=== PATIENT | female | born 1940 | race Caucasian/White ===

== ENCOUNTER 2025-02-24 19:45 | Emergency (ER) | payer OTHER ==
[2025-02-24] MEDS ORDERED: ONDANSETRON 4 MG/2 ML VIAL ONE (20:28)
[2025-02-24] MEDS ORDERED: HYDROMORPHONE HCL 0.5 MG/0.5 ML INJ ONE (20:28)
[2025-02-24 20:34] LABS: Absolute Lymphocytes (CBC) 0.3 K/uL (0.7-4.9); Hematocrit 32.8 % (36.0-45.0); Hemoglobin 10.6 g/dL (12.0-15.0); MCH 29.6 pg (27.0-35.0); MCHC 32.3 g/dL (32.0-36.0); MCV 91.9 fL (80-100); MPV 7.8 fL (7.6-11.3); Nucleated RBC Absolute Count 0.0 (0-0); Nucleated Red Blood Cells % 0.0 % (0-0); RBC Red Blood Cell Count 3.57 M/uL (3.86-4.86); White Blood Count 12.20 thou/uL (4.3-10.9)
[2025-02-24 21:09] LABS: ALT/SGPT 49.0 U/L (13-56); AST/SGOT 67.0 U/L (15-37); Albumin 3.0 g/dL (3.4-5.0); Albumin/Globulin Ratio 0.8 (1.1-1.8); Alkaline Phosphatase 78.0 U/L (45-117); Anion Gap 10.7 mEq/L (5.0-15.0); BUN Blood Urea Nitrogen 21.0 mg/dL (7-18); Globulin 4.0 g/dL (2.3-3.5); Glucose Level 146.0 mg/dL (74-106); Lipase 20.0 U/L (13-75); Potassium 4.7 mEq/L (3.5-5.1)
[2025-02-24 21:20] LABS: Sqamous Epithelial <5 /HPF (None Seen); Urine Culture Reflex Order REFLEXED; Urine Microscopic Reflex YN ORDER UMIC; Urine WBC Clump Rare /HPF (None Seen)
[2025-02-24 22:32] LABS: Differential Total Cells Count 100; Segmented Neutrophils 81 % (40-80)
[2025-02-24 22:33] LABS: Blood Morphology Comment NOT SEEN (NOT SEEN)
--- NOTE | 2025-02-24 22:35 | RAD REPORT ---
EXAMINATION: CT ABDOMEN AND PELVIS WITH CONTRAST CLINICAL INDICATION: ABD PAIN TECHNIQUE: CT abdomen and pelvis was performed, after the administration of IV contrast, as per [facility] protocol. Axial, sagittal and coronal reconstructions were obtained. One or more of the following dose reduction techniques were used: Automated exposure control, adjustment of the mA and k V according to patient size, and iterative reconstruction. Unless otherwise specified, incidental findings do not require dedicated imaging follow-up. COMPARISON: No prior exam. FINDINGS: LOWER CHEST: Mild/moderate linear atelectasis in both posterior lung bases. LIVER: Mild diffuse fatty liver. Several small low-density hepatic lesions are present. Grossly unrem arkable gallbladder. SPLEEN: Normal size. No focal lesion. PANCREAS: There is mild pancreatic ductal dilatation seen. ADRENALS: Normal; no mass. KIDNEYS: 3.4 cm rounded lesion is seen superior cortex right kidney laterally with indistinct borders and intermediate density. There are several right renal calyceal stones. Benign cyst is also present inferior right kidney. Severe left hydronephrosis and hydroureter is present with significant cortical thinning. Punctate calyceal stone is also present. Distal ureter not well visualized due to artifact from right hip hardware. GASTROINTESTINAL TRACT: No evidence of free air, significant intra-abdominal free fluid, bowel obstru ction or abscess. Moderate stool is present throughout the colon. Mild sigmoid diverticulosis coli. APPENDIX: Normal appendix. LYMPH NODES: No lymphadenopathy. MUSCULOSKELETAL: Severe dextroscoliosis of the lumbar spine. ADDITIONAL FINDINGS: Significant streak artifact from right hip hardware obscures pelvic anatomy. IMPRESSION: 3.4 cm rounded intermediate density somewhat ill-defined lesion right renal cortex superiorly. This c ould represent focal pyelonephritis such as lobar nephronia or a mass. Follow-up nonemergent MRI abdomen with contrast would be useful for further characterization. Right nephrolithiasis is present. No significant right-sided hydronephrosis. Severe left-sided hydronephrosis and hydroureter is present with cortical thinning suggesting that th is is a chronic finding. Distal ureter is not well visualized nor is the left UVJ due to streak artifact. Mild pancreatic ductal dilatation is seen. There is no definitive etiology on this study, follow-up n onemergent MRCP may be of value.
--- NOTE | 2025-02-24 23:33 | EDPHYS ---
Physician Documentation [facility] Name: Marion Nelson Age: 84 yrs Sex: Female : 1940 Arrival Date: 02/24/2025 Time: 19:45 Bed 20 Private MD: ED Physician Mikel De Paz HPI: 02/25 01:02 This 84 yrs old Female presents to ER via EMS with complaints of flank pain. tt7 01:02 Patient reports she has been having dysuria for 2 days, was seen by her physician and tt7 started on course of Bactrim for cystitis, she has taken 2 doses of Bactrim, today she started to have moderate sharp/stabbing left flank pain with associated chills and nausea. No exacerbating or alleviating factors. Historical: - Allergies: 02/24 19:51 codeine sulfate; br2 19:51 ROCEPHIN; br2 19:51 Ibuprofen; br2 - PMHx: 02/25 01:52 Hypertensive disorder; Hypercholesterolemia; br2 - Immunization history:: Adult Immunizations not up to date. - Infectious Disease History:: Denies. - Social history:: Smoking status: Patient/guardian denies using tobacco, but has a distant history of tobacco abuse, Patient uses alcohol, occasionally. Patient/guardian denies using street drugs. ROS: 01:04 Constitutional: negative for fever. Cardiovascular: negative for chest pain. tt7 Respiratory: negative for shortness of breath. Abdomen/GI: positive for flank pain, negative for abdominal pain, vomiting, diarrhea. MS/Extremity: negative for injury and deformity. Skin: negative for rash. Neuro: negative for focal weakness. Exam: 01:05 Constitutional: vital signs reviewed, uncomfortable appearing. Head/Face: tt7 normocephalic, atraumatic. Eyes: no conjunctival injection, anicteric sclerae. ENT: mucus membranes moist. Neck: trachea midline, no JVD, no meningismus. Cardiovascular: regular rate and rhythm, no murmurs, no rubs, no lower extremity edema. Respiratory: normal respiratory effort, no accessory muscle use, lungs CTAB. Abdomen/GI: soft, nondistended, nontender, no guarding or rebound, negative Treadwell's sign, no McBurney point tenderness, bilateral CVA tenderness. Skin: warm, dry, intact, normal turgor, normal color, no rash. MS/ Extremity: normal ROM of extremities, no gross deformities. Neuro: alert and oriented with appropriate mental status, normal speech, follows commands, no focal neurologic deficits. Psych: anxious Vital Signs: 02/24 19:49 BP 130 / 93; Pulse 87; Resp 18 S; Temp 97.4(TE); Pulse Ox 100% on R/A; Weight 53.52 kg; br2 Height 5 ft. 2 in. ; Pain 03/04; 21:53 BP 139 / 62; Pulse 94; Resp 18; Pulse Ox 95% on R/A; br2 23:03 Pulse 102; Resp 18; Pulse Ox 97% on R/A; br2 02/25 01:00 BP 147 / 67; Pulse 91; Resp 18 S; Pulse Ox 100% on R/A; br2 02:00 BP 146 / 69; Pulse 87; Resp 16; Temp 99.5; Pulse Ox 94% on R/A; br2 02/24 19:49 Body Mass Index 21.58 (53.52 kg, 157.48 cm) br2 02/24 19:49 Pain Scale: Adult br2 MDM: 02/24 19:47 Medical Screening Exam initiated tt7 02/25 01:06 Differential Diagnosis Pyelonephritis, perinephric abscess, renal abscess, tt7 ureterolithiasis, ureteral obstruction, acute cystitis, sepsis. Data reviewed: vital signs, nurses notes, lab test result(s), radiologic studies. Counseling: I had a detailed discussion with the patient and/or guardian regarding the historical points, exam findings, and any diagnostic results supporting the discharge/admit diagnosis, lab results, radiology results, the need to transfer to another facility. ED course: 84-year-old female with flank pain and urinary symptoms, vital signs are stable, physical exam is positive for CVA tenderness, laboratory studies, urinalysis, and CT imaging of the abdomen/pelvis have been ordered, patient given antiemetic and parenteral opioid, laboratory studies demonstrated that patient has a leukocytosis of 12,000 with 14% bands, this finding as well as her elevated pulse of 102 meet SIRS criteria for sepsis, lactate and blood cultures ordered, patient administered empiric Zosyn. CT imaging demonstrates findings concerning for focal area of infection in the superior aspect of the right kidney which likely represents focal pyelonephritis versus organizing abscess, patient on appropriate antibiotic coverage, given the focal appearance of this and potential for it to be a mass as well will initiate transfer to a facility that has urology services as patient could require urologic intervention. I discussed the case with on-call urologist at [facility] who agrees to consult on the case. I discussed the patient presentation, vitals, laboratory studies, and CT imaging findings with hospitalist Dr. Coleman who accepts patient for transfer. 02/24 19:49 Order name: CBC with Diff; Complete Time: 22:37 tt7 02/24 19:49 Order name: CMP; Complete Time: 21:36 tt7 02/24 19:49 Order name: Lipase; Complete Time: 21:36 tt7 02/24 19:49 Order name: UA Rfx Basilio Cult if indicated; Complete Time: 21:36 tt7 02/24 21:31 Order name: Urine Culture EDMS 02/24 22:01 Order name: Manual Differential; Complete Time: 22:37 EDMS 02/24 23:15 Order name: Blood Culture Adult (2) tt7 02/24 23:15 Order name: Lactate w/ 2H reflex if indic.; Complete Time: 01:10 tt7 02/24 19:49 Order name: CT Abd/Pelvis - IV Contrast Only; Complete Time: 22:37 tt7 02/24 19:49 Order name: IV Saline Lock; Complete Time: 20:36 tt7 02/24 19:49 Order name: Labs collected and sent; Complete Time: 20:36 tt7 02/24 23:15 Order name: Cardiac monitoring; Complete Time: 23:18 tt7 02/24 23:15 Order name: IV Saline Lock - Large Bore; Complete Time: 23:18 tt7 02/24 23:15 Order name: O2 Per Protocol; Complete Time: 23:18 tt7 02/24 23:15 Order name: O2 Sat Monitoring; Complete Time: 23:18 tt7 02/24 23:15 Order name: Vital Signs; Complete Time: 23:18 tt7 Administered Medications: 02/24 21:15 Drug: HYDROmorphone IVP 0.5 mg IVP once Route: IVP; Site: right antecubital; br2 21:15 Drug: Ondansetron IVP 4 mg IVP once; over 2 minutes Route: IVP; Site: right antecubital;br2 02/25 00:28 Drug: Piperacillin-Tazobactam IVPB 4.5 grams IVPB once over 60 mins; (mix in 100 mL NS) br2 Route: IVPB; Infused Over: 60 mins; Site: right antecubital; 02:41 Follow up: Response: No adverse reaction; IV Intake: 100ml br2 01:46 Drug: NS 0.9% IV 1000 ml IV at 1000 ml once; to be given as a bolus over 60 minutes br2 Route: IV; Rate: 1000 ml; Site: right antecubital; 02:41 Follow up: IV Status: Completed infusion; IV Intake: 1000ml br2 02:13 Drug: Acetaminophen PO 1000 mg PO once Route: PO; br2 02:42 Follow up: Response: Pain is decreased br2 03:00 Drug: HYDROmorphone IVP 0.5 mg IVP once Route: IVP; Site: right antecubital; br2 03:01 Follow up: Response: Medication Administered at Departure br2 Disposition: 01:22 Co-signature as Attending Physician, Mikel De Paz DO. tt7 Disposition Summary: 02/24/25 23:32 Transfer Ordered Notes: Transfer Location: [facility] tt7 Reason: Higher level of care tt7 Condition: Fair tt7 Problem: new tt7 Symptoms: are unchanged tt7 Accepting Physician: Dr. Coleman(02/25/25 03:04) br2 Diagnosis - Pyelonephritis acute tt7 - Sepsis, unspecified organism tt7 Forms: - Medication Reconciliation Form tt7 - SBAR form tt7 Signatures: Dispatcher [employer] Georgia Dee RN RN br2 Mikel De Paz DO DO tt7 Corrections: (The following items were deleted from the chart) 02/24 23:15 23:15 BLOOD CULTURE*+BA.LAB.BRZ ordered. [facility] 23:15 23:15 LACTATE+C.LAB.BRZ ordered. [facility] 02/25 01:16 01:06 ED course: 84-year-old female with flank pain and urinary symptoms, vital signs tt7 are stable, physical exam is positive for CVA tenderness, laboratory studies, urinalysis, and CT imaging of the abdomen/pelvis have been ordered, patient given antiemetic and parenteral opioid, laboratory studies demonstrated that patient has.. omar 01:20 02/24 23:32 Dr. nelson tt7 02/25 01:22 01:06 ED course: 84-year-old female with flank pain and urinary symptoms, vital signs tt7 are stable, physical exam is positive for CVA tenderness, laboratory studies, urinalysis, and CT imaging of the abdomen/pelvis have been ordered, patient given antiemetic and parenteral opioid, laboratory studies demonstrated that patient has a leukocytosis of 12,000 with 14% bands, this finding as well as her elevated pulse of 102 meet SIRS criteria for sepsis, lactate and blood cultures ordered, patient administered empiric Zosyn.. tt7 03:04 01:20 Dr. Virginia nelson br2
--- NOTE | 2025-02-24 23:33 | ER ---
Nurse's Notes [facility] Name: Marion Nelson Age: 84 yrs Sex: Female : 1940 Arrival Date: 02/24/2025 Time: 19:45 Bed 20 Private MD: Diagnosis: Pyelonephritis acute;Sepsis, unspecified organism Presentation: 02/24 19:49 Chief complaint: Patient states: PT C/O LEFT FLANK PAIN THAT BEGAN AFTER DINNER TODAY. br2 PT STARTED TX FOR UTI AND HAS HAD 2 DOSES OF BACTRIM. PT C/O BURNING AFTER URINATION. Coronavirus screen: Client denies travel out of the [place] in the last 14 days. Ebola Screen: Patient denies exposure to infectious person. Initial Sepsis Screen: Does the patient meet any 2 criteria? No. Patient's initial sepsis screen is negative. Does the patient have a suspected source of infection? No. Patient's initial sepsis screen is negative. Risk Assessment: Do you want to hurt yourself or someone else? Patient reports no desire to harm self or others. Onset of symptoms was February 24, 2025 at 17:00. 19:49 Method Of Arrival: EMS: [facility] br2 19:49 Acuity: ARPAN 3 br2 Triage Assessment: 19:51 General: Appears uncomfortable, Behavior is cooperative, anxious. Pain: Complains of br2 pain in left lower back Pain currently is 10 out of 10 on a pain scale. 19:51 EENT: No signs and/or symptoms were reported regarding the EENT system. Neuro: Maxwell br2 Agitation-Sedation Scale (RASS): +1 Restless Level of Consciousness is awake, alert, Oriented to person, place, time, situation. Cardiovascular: Denies chest pain. Respiratory: Airway is patent Respiratory effort is even, unlabored, Respiratory pattern is regular, symmetrical. GI: No signs and/or symptoms were reported involving the gastrointestinal system. : Reports burning with urination, LEFT FLANK PAIN. Derm: No signs and/or symptoms reported regarding the dermatologic system. Musculoskeletal: No signs and/or symptoms reported regarding the musculoskeletal system. Historical: - Allergies: 19:51 codeine sulfate; br2 19:51 ROCEPHIN; br2 19:51 Ibuprofen; br2 - PMHx: 10/03 01:52 Hypertensive disorder; Hypercholesterolemia; br2 - Immunization history:: Adult Immunizations not up to date. - Infectious Disease History:: Denies. - Social history:: Smoking status: Patient/guardian denies using tobacco, but has a distant history of tobacco abuse, Patient uses alcohol, occasionally. Patient/guardian denies using street drugs. Screenin/02 19:49 [facility] ED Fall Risk Assessment (Adult) History of falling in the last 3 months, br2 including since admission No falls in past 3 months (0 pts) Confusion or Disorientation No (0 pts) Intoxicated or Sedated No (0 pts) Impaired Gait Yes (1 pt) Mobility Assist Device Used Yes (1 pt) Altered Elimination Yes (1 pt) Score/Fall Risk Level 3 or more points = High Risk Oriented to surroundings, Maintained a safe environment. Abuse screen: Denies threats or abuse. Denies injuries from another. Nutritional screening: No deficits noted. Tuberculosis screening: No symptoms or risk factors identified. Assessment: 21:53 Reassessment: Patient and/or family updated on plan of care and expected duration. Pain br2 level reassessed. Patient is alert, oriented x 3, equal unlabored respirations, skin warm/dry/pink. Patient states feeling better. 02/25 01:00 Respiratory: Airway is patent is compromised Respiratory effort is even, unlabored, br2 Respiratory pattern is regular, symmetrical. 02:14 Reassessment: Patient and/or family updated on plan of care and expected duration. Pain br2 level reassessed. Patient is alert, oriented x 3, equal unlabored respirations, skin warm/dry/pink. PT C/O OF CHILLS. TEMP OF 99.5. PT STATES THAT IS HIGH FOR HER. DR QUINTEROS NOTIFIED. 02:26 Reassessment: Patient is alert, oriented x 3, equal unlabored respirations, skin br2 warm/dry/pink. General: Appears comfortable. 02:45 Reassessment: ATTEMPTED TO CALL PT'S DAUGHTER BERNICE BUT WENT STRAIGHT TO VOICE MAIL. br2 MESSAGE WAS LEFT ON WHERE PT WAS BEING TRANSFER TO WITH ROOM NUMBER. 03:01 Reassessment: Patient and/or family updated on plan of care and expected duration. Pain br2 level reassessed. Patient is alert, oriented x 3, equal unlabored respirations, skin warm/dry/pink. DILAUDID 0.5 ADMINISTERED PRIOR TO TRANSFER FOR PAIN IN THE AMBULANCE. Vital Signs: 02/24 19:49 BP 130 / 93; Pulse 87; Resp 18 S; Temp 97.4(TE); Pulse Ox 100% on R/A; Weight 53.52 kg; br2 Height 5 ft. 2 in. ; Pain 03/04; 21:53 BP 139 / 62; Pulse 94; Resp 18; Pulse Ox 95% on R/A; br2 23:03 Pulse 102; Resp 18; Pulse Ox 97% on R/A; br2 02/25 01:00 BP 147 / 67; Pulse 91; Resp 18 S; Pulse Ox 100% on R/A; br2 02:00 BP 146 / 69; Pulse 87; Resp 16; Temp 99.5; Pulse Ox 94% on R/A; br2 02/24 19:49 Body Mass Index 21.58 (53.52 kg, 157.48 cm) br2 02/24 19:49 Pain Scale: Adult br2 ED Course: 02/24 19:47 Patient arrived in ED. rv1 19:47 Mikel Quinteros DO is Attending Physician. tt7 19:49 Georgia Teague, DAYANARA is Primary Nurse. br2 19:49 Fall risk band placed. Bed in low position. Call light in reach. Side rails up X2. br2 Provided Education on: PLAN OF CARE. 19:51 Triage completed. br2 19:51 Arm band placed on. br2 19:54 Radiology exam delayed due to lab results not completed at this time. (BUN/Creatinine) sj IV insertion attempt and/or patient not having appropriate IV at this time. 20:36 CBC with Diff Sent. br2 20:36 CMP Sent. br2 20:36 Lipase Sent. br2 20:37 Inserted saline lock: 22 gauge in right antecubital area, using aseptic technique. br2 Blood collected. Flushed with 10 mL NS. 22:19 CT Abd/Pelvis - IV Contrast Only In Process Unspecified. EDMS 23:18 Urine Culture Sent. vk 02/25 02:13 [place]. br2 03:02 No provider procedures requiring assistance completed. Patient transferred, IV remains br2 in place. Administered Medications: 02/24 21:15 Drug: HYDROmorphone IVP 0.5 mg IVP once Route: IVP; Site: right antecubital; br2 21:15 Drug: Ondansetron IVP 4 mg IVP once; over 2 minutes Route: IVP; Site: right antecubital;br2 02/25 00:28 Drug: Piperacillin-Tazobactam IVPB 4.5 grams IVPB once over 60 mins; (mix in 100 mL NS) br2 Route: IVPB; Infused Over: 60 mins; Site: right antecubital; 02:41 Follow up: Response: No adverse reaction; IV Intake: 100ml br2 01:46 Drug: NS 0.9% IV 1000 ml IV at 1000 ml once; to be given as a bolus over 60 minutes br2 Route: IV; Rate: 1000 ml; Site: right antecubital; 02:41 Follow up: IV Status: Completed infusion; IV Intake: 1000ml br2 02:13 Drug: Acetaminophen PO 1000 mg PO once Route: PO; br2 02:42 Follow up: Response: Pain is decreased br2 03:00 Drug: HYDROmorphone IVP 0.5 mg IVP once Route: IVP; Site: right antecubital; br2 03:01 Follow up: Response: Medication Administered at Departure br2 Medication: 03:02 VIS not applicable for this client. br2 Intake: 02:41 IV: 1000ml; Total: 1000ml. br2 02:41 IV: 100ml; Total: 1100ml. br2 Outcome: 02/24 23:32 ER care complete, transfer ordered by . tt7 02/25 03:02 Transferred by ground EMS to [facility], Transfer form completed. br2 X-rays sent w/ patient. Condition: improved Instructed on the need for transfer, Demonstrated understanding of instructions, 03:04 Patient left the ED. br2 Signatures: Dispatcher [employer] Mamie Calzada Rebecca rv1 Tessa Mehta Belinda, RN RN br2 Mikel Quinteros DO DO tt7
[2025-02-24] MEDS ORDERED: NA CHLORIDE 0.9% 100 ML ONE (23:54)
[2025-02-24] MEDS ORDERED: PIPERACIL/TAZO 4.5 GM VIAL IV ONE (23:54)
[2025-02-25] MEDS ORDERED: NA CHLORIDE 0.9% 1,000 ML ONE (01:19)
[2025-02-25] MEDS ORDERED: ACETAMINOPHEN 500 MG TAB ONE (01:58)
[2025-02-25] MEDS ORDERED: HYDROMORPHONE HCL 0.5 MG/0.5 ML INJ ONE (02:28)
[2025-02-25 03:57] VITALS: BP 146/69; TEMP 99.5; O2SAT 94
== END 2025-02-25 03:04 | disposition short-term general hospital (02) ==
LOC: ER 19:45
DX: N10 Acute pyelonephritis (principal); A41.9 Sepsis, unspecified organism; I10 Essential (primary) hypertension
CPT/HCPCS: 96361; 87040 ×2; 87088; 85025; 81001; 87086; 36415; 87205 ×2; 83605; 87077; 87186; 83690; 80053; 74177; 96375; 96374; 99285; Q9967; J1171 ×2; J2405; J7030